=== PATIENT | female | born 1990 | race Caucasian/White ===

== ENCOUNTER 2024-09-11 07:05 | Outpatient (CLI) | payer BC, SELFPAY ==
--- NOTE | 2024-09-11 07:15 | CRLHL7_ITS ---
For Patients: As a result of the Century Cures Act, medical imaging exams and procedure reports are released immediately into your electronic medical record. You may view this report before your referring provider. If you have questions, please contact your health care provider. OB ULTRASOUND LESS THAN 14 WEEKS, 09/11/2024 COMPARISON: None. TECHNIQUE: Real time londono scale imaging of the fetus was performed. Transvaginal imaging performed. FINDINGS: IMAGING: TV. LMP: 07/12/2024. MEGAN by LMP: 04/18/2025. GA: 8 weeks 5 days. CRL: 1.0 cm, 7 weeks 1 day. MEGAN 04/29/2025. FHR: 134 bpm. GEST SAC: 2.4 cm, appears WNL. YOLK SAC: 3.6 mm, appears WNL. RIGHT OV: 3.2 x 1.4 x 2.2 cm, WNL. LEFT OV: 2.8 x 2.1 x 1.9 cm, WNL. CL. IMPRESSION: Single living intrauterine measuring 7 weeks 1 day and sonographic due date 04/29/2025. Jarrell Mendoza M.D. Diagnostic Radiologist [email or web address] Transcribed: 1:01 pm DW/Dictated by: Jarrell Mendoza MD @ 09/11/2024 10:22:00 AM (Electronically Signed)
== END 2024-09-11 07:06 | disposition home or self-care (01) ==
LOC: US 07:08
PROVIDERS: Visit Provider Physician Assistant
DX: Z34.91 Encounter for supervision of normal pregnancy, unspecified, first trimester (principal); Z3A.08 8 weeks gestation of pregnancy
CPT/HCPCS: 76817

== ENCOUNTER 2024-09-11 08:49 | Outpatient (CLI) | payer BC, SELFPAY ==
[2024-09-11 13:37] LABS: Chlamydia DNA Amplified* NOT DETECTED (No Detected); GC DNA Amplified* NOT DETECTED (No Detected)
== END 2024-09-11 08:50 | disposition home or self-care (01) ==
PROVIDERS: Visit Provider Physician Assistant
DX: Z34.81 Encounter for supervision of other normal pregnancy, first trimester (principal); Z67.40 Type O blood, Rh positive
CPT/HCPCS: 83020; 83021; 85660; 86592; 86703; 86704; 86706; 86762; 86787; 86803; 86850; 86900; 86901; 87086; 87340; 87491; 87591

== ENCOUNTER 2024-10-09 08:53 | Outpatient (CLI) | payer BC, SELFPAY | END 2024-10-09 08:54 | disposition home or self-care (01) | PROVIDERS: Visit Provider Obstetrics & Gynecology | DX: Z34.91 Encounter for supervision of normal pregnancy, unspecified, first trimester (principal); Z87.59 Personal history of other complications of pregnancy, childbirth and the puerperium; Z3A.11 11 weeks gestation of pregnancy | CPT/HCPCS: 82565; 82570; 84156; 84450; 84460; 84520 ==

== ENCOUNTER 2024-11-05 15:28 | Outpatient (CLI) | payer BC, SELFPAY | END 2024-11-05 15:29 | disposition home or self-care (01) | PROVIDERS: Visit Provider Obstetrics & Gynecology | DX: Z34.82 Encounter for supervision of other normal pregnancy, second trimester (principal) | CPT/HCPCS: 80076 ==

== ENCOUNTER 2024-11-16 14:54 | Outpatient (CLI) | payer BC, SELFPAY | END 2024-11-16 14:55 | disposition home or self-care (01) | LOC: NFLDREF 11-19 16:46 | PROVIDERS: Visit Provider Obstetrics & Gynecology | DX: Z34.82 Encounter for supervision of other normal pregnancy, second trimester (principal); Z87.59 Personal history of other complications of pregnancy, childbirth and the puerperium | CPT/HCPCS: 82570; 84156 ==

== ENCOUNTER 2024-12-04 08:06 | Outpatient (CLI) | payer BC, SELFPAY ==
--- NOTE | 2024-12-04 08:15 | CRLHL7_ITS ---
For Patients: As a result of the 21st Century Cures Act, medical imaging exams and procedure reports are released immediately into your electronic medical record. You may view this report before your referring provider. If you have questions, please contact your health care provider. OB ULTRASOUND SURVEY MEGAN by US: 04/29/2025. GA: 19 w, 1 d. INDICATION: anatomic scan. TECHNIQUE: Real time londono scale imaging of the fetus was performed. Evaluate anatomy. Transabdominal and transvaginal imaging performed. position: Vertex, oblique, transverse, breech, multiple positions. Head to maternal left. Cervix: Visualized. Technique: Transabdominal and Transvaginal. Length of closed cervix: 4.5 cm. Placenta/cord: Anterior. Technique: Transabdominal and Transvaginal. Placenta tip to internal OS: Previa. Umbilical Cord: 3-vessel cord. Placenta insertion: Central. Amniotic Fluid: 4.5 cm SDP (greater than/equal to: 2- less than 8 cm). SURVEY: Observed Structures. Calvarium/Spine: Cerebellum: 2.0 cm, 20 w 2 d. Cisterna Magna: 2.6 mm. Nuchal Fold: 3.5 mm. Lateral Ventricle: 7.1 mm. CSP: Yes. Midline Falx: Yes. Choroid Plexus: Yes. Spine: See impression. Abdomen: Stomach: Yes. Abd Cord Insertion: Yes. Urinary Bladder: Yes. Kidneys: See impression. Diaphragm: Yes. Face: Nose/lips: Yes. Orbital view: Yes. Profile: Yes. Limbs: Upper Extremities: Yes. Lower Extremities: Yes. Hands: Yes. Feet: Yes. Vascular: 4-Chamber Heart: Yes. LVOT: Yes. RVOT: Yes. 3VV: See impression. 3VTV: See impression. BPD: 4.3 cm. 19 w, 1 d, 50 percent. HC: 16.8 cm. 19 w, 3 d, 58 percent. AC: 16.0 cm. 21 w, 0 d, 94 percent. FL: 3.3 cm. 20 w, 2 d, 82 percent. FL/AC ratio: 20.63 percent. HC/AC ratio: 1.05. heart rate: 130 bpm. age by this US: 20 w, 0 d. MEGAN by this US: 04/23/2025. EFW: 359.31 g. Weight: 0 lbs, 13 oz. Percentile by MEGAN: >97 percent. IMPRESSION: 1. Abnormal three-vessel view and three-vessel trachea view. Incomplete visualization of the remaining heart structures. Cannot exclude a cardiac anomaly. Level 2 maternal medicine consultation recommended. 2. Incomplete visualization of the spine and kidneys. These structures should be followed up on subsequent imaging. 3. Sonographic gestational age 20 weeks 0 days and sonographic due date 04/23/2025. Sonographic age is 6 days ahead of the clinical age. 4. Estimated weight greater than 97th percentile. Abdominal circumference 94th percentile. 5. With transvaginal imaging, the anterior placental edge is located 1.6 cm from the internal cervical os. Previa appears to have developed with transvaginal imaging and following a contraction. Follow-up placental position in relation to the cervical os recommended. Jarrell Mendoza M.D. Diagnostic Radiologist [email or web address] SALMA/[email or web address]/Dictated by: Jarrell Mendoza MD @ 12/04/2024 12:43:00 PM (Electronically Signed)
== END 2024-12-04 08:07 | disposition home or self-care (01) ==
LOC: US 08:07
PROVIDERS: Visit Provider Obstetrics & Gynecology
DX: Z87.59 Personal history of other complications of pregnancy, childbirth and the puerperium (principal); O35.BXX0 Maternal care for other (suspected) fetal abnormality and damage, fetal cardiac anomalies, not applicable or unspecified; O35.FXX0 Maternal care for other (suspected) fetal abnormality and damage, fetal musculoskeletal anomalies of trunk, not applicable or unspecified; Z3A.20 20 weeks gestation of pregnancy
CPT/HCPCS: 76805; 76817

== ENCOUNTER 2025-01-24 11:22 | Outpatient (CLI) | payer BC, SELFPAY ==
--- NOTE | 2025-01-24 11:30 | CRLHL7_ITS ---
For Patients: As a result of the Cures Act, medical imaging exams and procedure reports are released immediately into your electronic medical record. You may view this report before your referring provider. If you have questions, please contact your health care provider. OB ULTRASOUND FOLLOW-UP/LIMITED, 01/24/2025 CLINICAL HISTORY: Complete previa. COMPARISON: 12/04/2024 TECHNIQUE: Real time londono scale imaging of the fetus was performed. Transabdominal imaging performed. FINDINGS: MEGAN by US: 04/29/2025. GA: 26 weeks 3 days. Gestation: Single. Cervix: Visualized. TA. Measurement: 4.7 cm. Positioning: Vertex. Amniotic Fluid: 6.3 cm SDP. Placenta: Technique: TA. Placenta Position: Anterior. Dopplers: Heart Rate: 134 bpm. IMPRESSION: The cervix is closed and measures 4.7 cm. The anterior placenta edge is located 4.2 cm from the internal cervical os. Jarrell Mendoza M.D. Diagnostic Radiologist [email or web address] Transcribed: 2:10 pm DW/Dictated by: Jarrell Mendoza MD @ 01/24/2025 12:28:00 PM (Electronically Signed)
== END 2025-01-24 11:23 | disposition home or self-care (01) ==
LOC: US 11:23
PROVIDERS: Visit Provider Obstetrics & Gynecology
DX: O44.02 Complete placenta previa NOS or without hemorrhage, second trimester (principal); Z3A.26 26 weeks gestation of pregnancy
CPT/HCPCS: 76816

== ENCOUNTER 2025-02-05 08:04 | Outpatient (CLI) | payer BC, SELFPAY | END 2025-02-05 08:05 | disposition home or self-care (01) | LOC: NFLDREF 02-21 02:25 | PROVIDERS: Visit Provider Obstetrics & Gynecology | DX: Z34.93 Encounter for supervision of normal pregnancy, unspecified, third trimester (principal) | CPT/HCPCS: 86592 ==

== ENCOUNTER 2025-02-19 08:06 | Outpatient (CLI) | payer BC, SELFPAY ==
--- NOTE | 2025-02-19 08:15 | CRLHL7_ITS ---
For Patients: As a result of the Cures Act, medical imaging exams and procedure reports are released immediately into your electronic medical record. You may view this report before your referring provider. If you have questions, please contact your health care provider. OB ULTRASOUND FOLLOW-UP CLINICAL HISTORY: GDM. TECHNIQUE: Real time londono scale imaging of the fetus was performed. Transabdominal imaging performed. COMPARISON: 01/24/2025, 12/04/2024, 09/11/2024. FINDINGS: MEGAN by US: 04/29/2025. GA: 30 weeks 1 day. Gestation: Single. Cervix: Not visualized. Positioning: Vertex. Placenta: Technique: TA. Placenta Position: Anterior. Amniotic Fluid: 7.3 cm SDP. Dopplers: Heart Rate: 133 bpm. BIOMETRY BPD: 8.0 cm, 32 weeks 1 day. 90.4% HC: 29.4 cm, 32 weeks 4 days. 80.9% AC: 28.2 cm, 32 weeks 2 days. 93.4% FL: 5.6 cm, 29 weeks 4 days. 22.0% FL/AC Ratio: 20.0% HC/AC Ratio: 1.0. EFW: 1771 grams, 3 lb 14 oz. Age by this US: 31 weeks 5 days. MEGAN by this US: 04/18/2025. Percentile by MEGAN: 82.1% IMPRESSION: 1. Sonographic gestational age 31 weeks 5 days and sonographic due date 04/18/2025. Sonographic age is 11 days ahead of the clinical age. 2. Estimated weight 82nd percentile. Abdominal circumference 93rd percentile. Jarrell Mendoza M.D. Diagnostic Radiologist [email or web address] Transcribed: DW/Dictated by: Jarrell Mendoza MD @ 02/19/2025 9:59:00 AM (Electronically Signed)
== END 2025-02-19 08:07 | disposition home or self-care (01) ==
LOC: US 08:06
PROVIDERS: Visit Provider Obstetrics & Gynecology
DX: O24.419 Gestational diabetes mellitus in pregnancy, unspecified control (principal); O36.63X0 Maternal care for excessive fetal growth, third trimester, not applicable or unspecified; Z3A.30 30 weeks gestation of pregnancy
CPT/HCPCS: 76816

== ENCOUNTER 2025-02-22 09:10 | Outpatient (CLI) | payer BC, SELFPAY ==
--- NOTE | 2025-02-22 09:15 | CRLHL7_ITS ---
For Patients: As a result of the Cures Act, medical imaging exams and procedure reports are released immediately into your electronic medical record. You may view this report before your referring provider. If you have questions, please contact your health care provider. OB ULTRASOUND MEGAN by US: 04/29/2025. GA: 30 w, 4 d. Single. Comparison: Ultrasound 02/09/2025, 01/24/2025. INDICATION: GDMA2. TECHNIQUE: Real time grayscale imaging of the fetus was performed. Transabdominal. CERVIX: Not visualized. POSITIONING: Vertex. AMNIOTIC FLUID: 7.4 cm. SDP (N: greater than 2 x 1 cm) BIOPHYSICAL PROFILE: 2: Gross body movements 2: tone 2: Respiratory activity 2: Amniotic fluid SDP (N: greater than 2 x 1 cm) 8/8: Total score PLACENTA: Technique: Transabdominal. PLACENTA POSITION: Anterior. DOPPLER: heart rate: 132 bpm. IMPRESSION: Normal biophysical profile score 8/8. Jarrell Mendoza M.D. Diagnostic Radiologist [email or web address] SALMA/[email or web address]/Dictated by: Jarrell Mendoza MD @ 02/22/2025 12:25:00 PM (Electronically Signed)
== END 2025-02-22 09:11 | disposition home or self-care (01) ==
LOC: US 09:10
PROVIDERS: Visit Provider Obstetrics & Gynecology
DX: O24.419 Gestational diabetes mellitus in pregnancy, unspecified control (principal); Z3A.30 30 weeks gestation of pregnancy
CPT/HCPCS: 76819

== ENCOUNTER 2025-02-26 13:53 | Outpatient (CLI) | payer BC, SELFPAY ==
--- NOTE | 2025-02-26 14:00 | CRLHL7_ITS ---
For Patients: As a result of the Century Cures Act, medical imaging exams and procedure reports are released immediately into your electronic medical record. You may view this report before your referring provider. If you have questions, please contact your health care provider. INDICATION: 34 year-old female. Gestational diabetes mellitus. Evaluate well-being. TECHNIQUE: Limited transabdominal obstetrical ultrasound for biophysical profile purposes. COMPARISON: February 22, 2025. FINDINGS: There is a single living intrauterine in vertex presentation. The documented heart rate is 126 beats per minute. Anterior placenta. Normal amniotic fluid. Single deepest pocket measurement 3.7 cm previously 7.4 cm. Biophysical profile score 8/8 with 2 points given each for breathing, tone, body movements, and amniotic fluid volume. IMPRESSION : 1. Biophysical profile score 8/8 2. Single living intrauterine in vertex presentation with heart rate of 126 beats per minute. Dictated by Doug Fields MD @ 02/26/2025 3:11:48 PM (Electronically Signed)
== END 2025-02-26 13:54 | disposition home or self-care (01) ==
LOC: US 13:53
PROVIDERS: Visit Provider Obstetrics & Gynecology
DX: O24.419 Gestational diabetes mellitus in pregnancy, unspecified control (principal)
CPT/HCPCS: 76819

== ENCOUNTER 2025-03-05 07:16 | Outpatient (CLI) | payer BC, SELFPAY ==
--- NOTE | 2025-03-05 07:15 | CRLHL7_ITS ---
For Patients: As a result of the Cures Act, medical imaging exams and procedure reports are released immediately into your electronic medical record. You may view this report before your referring provider. If you have questions, please contact your health care provider. OBSTETRICAL ULTRASOUND ??? BIOPHYSICAL PROFILE INDICATION: GDMA2 CLINICAL HISTORY: MEGAN by Ultrasound: 04/29/2025 Gestational Age: 32 weeks 1 day COMPARISON: 02/26/2025, 02/22/2025, 02/19/2025. TECHNIQUE: Real-time londono-scale transabdominal imaging of the fetus was performed. FINDINGS: Fetus: Single Cervix: Not visualized positioning: Vertex Amniotic Fluid: 5.6 cm SDP BIOPHYSICAL PROFILE: Gross body movements: 2 tone: 2 Respiratory activity: 2 Amniotic fluid SDP: 2 Total score: 8 Placenta technique: Transabdominal Placenta position: Anterior heart rate: 131 bpm IMPRESSION: Normal biophysical profile score of 8/8. JARRELL DUMONT M.D. Diagnostic Radiologist [email or web address] Transcribed: 10:[address]/Dictated by: Jarrell Dumont MD @ 03/05/2025 9:16:00 AM (Electronically Signed)
== END 2025-03-05 07:17 | disposition home or self-care (01) ==
LOC: US 07:17
PROVIDERS: Visit Provider Obstetrics & Gynecology
DX: O24.419 Gestational diabetes mellitus in pregnancy, unspecified control (principal); Z3A.32 32 weeks gestation of pregnancy
CPT/HCPCS: 76819

== ENCOUNTER 2025-03-12 13:55 | Outpatient (CLI) | payer BC, SELFPAY ==
--- NOTE | 2025-03-12 14:00 | CRLHL7_ITS ---
For Patients: As a result of the Cures Act, medical imaging exams and procedure reports are released immediately into your electronic medical record. You may view this report before your referring provider. If you have questions, please contact your health care provider. OB ULTRASOUND BIOPHYSICAL PROFILE CLINICAL HISTORY: GDMA2. TECHNIQUE: Real time londono scale imaging of the fetus was performed. Transabdominal imaging performed. COMPARISON: 03/05/2025, 02/26/2025, 02/22/2025. FINDINGS: MEGAN by US: 04/29/2025. GA: 33 weeks 1 day. Gestation: Single. Cervix: Not visualized. Positioning: Vertex. Amniotic Fluid: 6.8 cm SDP. BIOPHYSICAL PROFILE Gross Body Movements: 2 Tone: 2 Respiratory Activity: 2 Amniotic Fluid SDP: 2 Total Score: 8 Placenta: Technique: TA. Placenta Position: Anterior. Dopplers: Heart Rate: 144 bpm. IMPRESSION: Normal biophysical profile score of 8/8. Jarrell Mendoza M.D. Diagnostic Radiologist [email or web address] Transcribed: 4:09 pm DW/Dictated by: Jarrell Mendoza MD @ 03/12/2025 3:26:00 PM (Electronically Signed)
== END 2025-03-12 13:56 | disposition home or self-care (01) ==
LOC: US 13:55
PROVIDERS: Visit Provider Obstetrics & Gynecology
DX: O24.419 Gestational diabetes mellitus in pregnancy, unspecified control (principal); Z3A.33 33 weeks gestation of pregnancy
CPT/HCPCS: 76819

== ENCOUNTER 2025-03-19 09:12 | Outpatient (CLI) | payer BC, SELFPAY ==
--- NOTE | 2025-03-19 09:15 | CRLHL7_ITS ---
For Patients: As a result of the Century Cures Act, medical imaging exams and procedure reports are released immediately into your electronic medical record. You may view this report before your referring provider. If you have questions, please contact your health care provider. OB ULTRASOUND MEGAN by US: 04/29/2025. GA: 34 w, 1 d. Single. Comparison: 03/12/2025, 03/05/2025, 02/26/2025. INDICATION: GDM2. TECHNIQUE: Real time grayscale imaging of the fetus was performed. Transabdominal. CERVIX: Not visualized. POSITIONING: Vertex. AMNIOTIC FLUID: 15.9 cm ELOISA. 8.5 cm. SDP (N: greater than 2 x 1 cm) BIOPHYSICAL PROFILE: 2: Gross body movements 2: tone 2: Respiratory activity 2: Amniotic fluid SDP (N: greater than 2 x 1 cm) 88: Total score PLACENTA: Technique: Transabdominal. PLACENTA POSITION: Anterior. DOPPLER: heart rate: 131 bpm. BIOMETRY: BPD: 9.0 cm. 36 w, 3 d, 95.5%. HC: 32.8 cm. 37 w, 2 d, 88.1%. AC: 31.0 cm. 35 w, 0 d, 76.6%. FL: 6.3 cm. 32 w, 5 d, 10.0%. FL/AC ratio: 20.4%. HC/AC ratio: 1.1. EFW: 2500g. Weight: 5 lbs., 8 oz. age by this US: 35 w, 3 d. MEGAN by this US: . Percentile by MEGAN: 61.7%. IMPRESSION: 1. Normal biophysical profile score 8/8. 2. Amniotic fluid single deepest pocket 8.5 cm. ELOISA 15.9 cm. 3. Sonographic gestational age 35 weeks 3 days and sonographic due date 04/20/2025. Sonographic age is 8 days ahead of the clinical age. 4. Estimated weight 62nd percentile. Abdominal circumference 77th percentile. Jarrell Mendoza M.D. Diagnostic Radiologist [email or web address] SALMA/[email or web address] [email or web address]/Dictated by: Jarrell Mendoza MD @ 03/19/2025 1:13:00 PM (Electronically Signed)
== END 2025-03-19 09:13 | disposition home or self-care (01) ==
LOC: US 09:12
PROVIDERS: Visit Provider Obstetrics & Gynecology
DX: O24.419 Gestational diabetes mellitus in pregnancy, unspecified control (principal); O36.63X0 Maternal care for excessive fetal growth, third trimester, not applicable or unspecified; Z3A.34 34 weeks gestation of pregnancy
CPT/HCPCS: 76816; 76819

== ENCOUNTER 2025-03-26 12:55 | Outpatient (CLI) | payer BC, SELFPAY ==
--- NOTE | 2025-03-26 13:00 | CRLHL7_ITS ---
For Patients: As a result of the Cures Act, medical imaging exams and procedure reports are released immediately into your electronic medical record. You may view this report before your referring provider. If you have questions, please contact your health care provider. OB ULTRASOUND MEGAN by US: 04/29/2025. GA: 35 w, 1 d. Single. Comparison: 03/19/2025, 03/12/2025, 03/05/2025. INDICATION: GDMA 2. TECHNIQUE: Real time grayscale imaging of the fetus was performed. Transabdominal. CERVIX: Not visualized. POSITIONING: Vertex. AMNIOTIC FLUID: 18.8 cm ELOISA. 8.3 cm. SDP (N: greater than 2 x 1 cm) BIOPHYSICAL PROFILE: 2: Gross body movements 2: tone 2: Respiratory activity 2: Amniotic fluid SDP (N: greater than 2 x 1 cm) 8/8: Total score PLACENTA: Technique: Transabdominal. PLACENTA POSITION: Anterior. DOPPLER: heart rate: 134 bpm. IMPRESSION: 1. Normal biophysical profile score 8/8. 2. Amniotic fluid single deepest pocket 8.3 cm. ELOISA 18.8 cm. Jarrell Mendoza M.D. Diagnostic Radiologist [email or web address] SALMA/[email or web address]/Dictated by: Jarrell Mendoza MD @ 03/26/2025 4:05:00 PM (Electronically Signed)
== END 2025-03-26 12:56 | disposition home or self-care (01) ==
LOC: US 12:55
PROVIDERS: Visit Provider Obstetrics & Gynecology
DX: O24.419 Gestational diabetes mellitus in pregnancy, unspecified control (principal); Z3A.35 35 weeks gestation of pregnancy
CPT/HCPCS: 76819

== ENCOUNTER 2025-04-02 09:10 | Outpatient (CLI) | payer BC, SELFPAY ==
--- NOTE | 2025-04-02 09:15 | CRLHL7_ITS ---
For Patients: As a result of the Cures Act, medical imaging exams and procedure reports are released immediately into your electronic medical record. You may view this report before your referring provider. If you have questions, please contact your health care provider. OBSTETRICAL ULTRASOUND ??? BIOPHYSICAL PROFILE INDICATION: Gestational diabetes mellitus. Biophysical profile. CLINICAL HISTORY: MEGAN by Ultrasound: 04/29/2025 Gestational Age: 36 weeks 1 day COMPARISON: 03/26/2025, 03/19/2025, 03/12/2025, 03/05/2025, 02/26/2025. TECHNIQUE: Real-time londono-scale transabdominal imaging of the fetus was performed. FINDINGS: Fetus: Single Cervix: Not visualized positioning: Vertex Amniotic Fluid: ELOISA: 20.2 cm SDP: 8.5 cm BIOPHYSICAL PROFILE: Gross body movements: 2 tone: 2 Respiratory activity: 2 Amniotic fluid SDP: 2 Total score: 8 Placenta technique: Transabdominal Placenta position: Anterior heart rate: 141 bpm IMPRESSION: 1. Normal biophysical profile score of 8/8. 2. Amniotic fluid single deepest pocket is 8.5 cm. ELOISA is 20.2 cm. JARRELL DUMONT M.D. Diagnostic Radiologist [email or web address] Transcribed: 10:[address]/Dictated by: Jarrell Dumont MD @ 04/02/2025 9:57:00 AM (Electronically Signed)
== END 2025-04-02 09:11 | disposition home or self-care (01) ==
LOC: US 09:10
PROVIDERS: Visit Provider Obstetrics & Gynecology
DX: O24.419 Gestational diabetes mellitus in pregnancy, unspecified control (principal); Z3A.36 36 weeks gestation of pregnancy
CPT/HCPCS: 76819

== ENCOUNTER 2025-04-09 09:11 | Outpatient (CLI) | payer BC, SELFPAY ==
--- NOTE | 2025-04-09 09:15 | CRLHL7_ITS ---
For Patients: As a result of the Cures Act, medical imaging exams and procedure reports are released immediately into your electronic medical record. You may view this report before your referring provider. If you have questions, please contact your health care provider. OBSTETRICAL ULTRASOUND ??? BIOPHYSICAL PROFILE INDICATION: Gestational diabetes mellitus. Biophysical profile. CLINICAL HISTORY: MEGAN by Ultrasound: 04/29/2025 Gestational Age: 37 weeks 1 day COMPARISON: 04/02/2025, 03/26/2025, 03/19/2025. TECHNIQUE: Real-time londono-scale transabdominal imaging of the fetus was performed. FINDINGS: Fetus: Single Cervix: Not visualized positioning: Vertex Amniotic Fluid: 6.9 cm SDP BIOPHYSICAL PROFILE: Gross body movements: 2 tone: 2 Respiratory activity: 2 Amniotic fluid SDP: 2 Total score: 8 Placenta technique: Transabdominal Placenta position: Anterior heart rate: 131 bpm IMPRESSION: Normal biophysical profile score of 8/8. JARRELL DUMONT M.D. Diagnostic Radiologist [email or web address] Transcribed: 10:[address]/Dictated by: Jarrell Dumont MD @ 04/09/2025 10:02:00 AM (Electronically Signed)
== END 2025-04-09 09:12 | disposition home or self-care (01) ==
LOC: US 09:12
PROVIDERS: Visit Provider Obstetrics & Gynecology
DX: O24.410 Gestational diabetes mellitus in pregnancy, diet controlled (principal); Z3A.37 37 weeks gestation of pregnancy; Z34.93 Encounter for supervision of normal pregnancy, unspecified, third trimester; I49.9 Cardiac arrhythmia, unspecified
CPT/HCPCS: 76819

== ENCOUNTER 2025-04-09 10:55 | Outpatient (CLI) | payer BC, SELFPAY | END 2025-04-09 10:56 | disposition home or self-care (01) | LOC: NFLDREF 04-11 13:45 | PROVIDERS: Visit Provider Obstetrics & Gynecology | DX: Z34.93 Encounter for supervision of normal pregnancy, unspecified, third trimester (principal); I49.9 Cardiac arrhythmia, unspecified | CPT/HCPCS: 84443; 87081; 87653 ==

== ENCOUNTER 2025-04-16 09:15 | Outpatient (CLI) | payer BC, SELFPAY ==
--- NOTE | 2025-04-16 09:15 | CRLHL7_ITS ---
For Patients: As a result of the Century Cures Act, medical imaging exams and procedure reports are released immediately into your electronic medical record. You may view this report before your referring provider. If you have questions, please contact your health care provider. INDICATION: Gestational diabetes mellitus in COMPARISON: 04/09/2025 TECHNIQUE: Grayscale and color ultrasound of the uterus and fetus from a transabdominal approach. FINDINGS: Provided gestational age: 38 weeks 1 day Single intrauterine gestation in a vertex presentation. heart rate is 137 bpm. No pleural effusion, pericardial effusion, ascites, or skin edema. The kidneys and bladder and stomach are normal. Biparietal diameter: 9.4 cm Head circumference: 33.5 cm Abdominal circumference: 33.9 cm Femur length: 7.2 cm HC/AC: 0.99, within normal limits for gestational age. The composite ultrasound estimated gestational age is 37 weeks 6 days. The estimated weight is 3272 grams, or 7 pounds 3 ounces. This corresponds to the 51st percentile for gestational age. Amniotic fluid volume is normal. The placenta is fundal. No previa. No periplacental hemorrhage. WELLBEING tone: 2/2 movement: 2/2 breathin/2 Amniotic fluid volume: 2/2 The single deepest vertical pocket measures: 7.7 cm. IMPRESSION: 1. Single intrauterine gestation in vertex presentation. Growth is concordant with dates. 2. Biophysical profile score 6/8. No points for breathing. Dictated by Rosa Givens MD @ 04/16/2025 10:22:45 AM (Electronically Signed)
== END 2025-04-16 09:16 | disposition home or self-care (01) ==
LOC: US 09:15
PROVIDERS: Visit Provider Obstetrics & Gynecology
DX: O24.419 Gestational diabetes mellitus in pregnancy, unspecified control (principal); Z3A.38 38 weeks gestation of pregnancy
CPT/HCPCS: 76816; 76819

== ENCOUNTER 2025-04-21 12:26 | Inpatient (IN) | payer BC, SELFPAY ==
[2025-04-21] VITALS (40 sets, daily range): BP systolic 107–155; BP diastolic 57–95; PULSE 64–221; RESP 16–18; TEMP 36.4–36.7; O2SAT 85–100; BMI 27.6
[2025-04-21] MEDS: LACTATED RINGERS 1000 ML 1,000 ML 999 ML IV (12:57)
--- NOTE | 2025-04-21 13:01 | P.LDBA_ITS ---
Subjective History of Present Illness Time Seen by Provider: 13:01 Date Seen: 04/21/25 Narrative: Patient is being admitted to Labor and Delivery for Contractions increasing. NO HSV symptoms.Blood sugars stable. She is a 34 year old at weeks gestation. Her full history and physical was dictated by Dr. Bryant. Recent us AGA growth.Please see this for details. Specific Issues/Plans Partner: Dimas H&P: 04/09 Dr. Bryant # GDMA2 Gestational diabetes - Dx of 1 hour glucola of 194mg/dL Nutrition referral Almost all fastings elevated as of 02/19 - referred to [facility] for insulin management 02/22: diabetic ed, 12U NPH at HS Serial growth US + twice weekly testing (ANT sheet completed 02/19) - Delivery at 39 weeks, sooner with suboptimal control - Anticipate IOL on 04/22 (39.0 weeks) # RESOLVED anterior placenta previa (low lying on our internal FAS) - 01/24 US: Placental edge 4.2cm from internal os. Anterior placenta. MVP 6.3cm. Vertex. 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 They did not see any possible structural defects of the heart, normal spine/kidneys. EFW 313 g at 73rd percentile, AC 77%. Anterior placenta, complete previa. MVP 4.4 cm. - 01/24 US: Placental edge 4.2cm from internal os. Anterior placenta. MVP 6.3cm. Vertex. - 02/19/25: cephalic, SDP 7.3, EFW 82.1%, AC 93.4%, BPD 90.4%, HC 80.9%, FL 22%. - 03/19/25: cephalic, ELOISA 15.9, SDP 8.5, EFW 61.7%, AC 76.6%, BPD 95.5%, HC 88.1%, FL 10% - 04/15: Cephalic, SDP 7.7, EFW 50.7%, AC 58%, all growth parameters within normal ranges Vaccinations: Hep B: Non-immune: Given 10/09/24 COVID: Declines Flu: completed at work Tdap: 02/19/25 RSV: Had in previous - discussed med hgb; 03/12/25 12.6 32 week mental health: 03/05/25 Last pap: [Only high-risk abnormal pap results in problem list] [place]: Low risk, male OB - Problem Based A/P Additional Plan (1) GDM, class A2: Status: Acute (2) Anxiety: Problem details: zoloft 50 mg daily Status: Acute (3) Normal labor: Status: Acute Plan Admit, continue Sertraline at evening 50mg. Arom after epidural. BS per protocol OB Exam Physical Exam Vital signs: Temp Pulse Resp BP Pulse Ox 97.6 F 81 16 131/79 97 04/21/25 09:47 04/21/25 12:59 04/21/25 09:47 04/21/25 12:59 04/21/25 09:57 Detailed Labor and Delivery Exam Patient Gravid: yes Dilation (cm): 4 Effacement (%): 80 Contraction Frequency: 2-3 Contraction intensity: Moderate Fetus (Single) Station: -2 Amniotic Membrane Status: intact Heart Rate Baseline: 130 Monitor Accelerations: Present Monitor Decelerations: None Chcf Variability: Moderate (6-25)
[2025-04-21 13:27] LABS: Hematocrit* 44.3 % (33.0-51.0); Hemoglobin* 14.5 gm/dL (12.0-16.0); Immature Granulocytes Pct Auto 0.2 %; Mean Corpuscular HGB Conc 33 gm/dL (32-36); Mean Corpuscular Hemoglobin 29 pg (26-34); Mean Corpuscular Volume 90 fL (80-100); RDW Coefficient of Variation % 13.4 % (11.5-15.5); Red Blood Count* 4.94 m/uL (4.00-5.20); White Blood Count* 13.28 K/uL (4.50-11.00)
[2025-04-21] MEDS: ONDANSETRON 2 MG/ML inj 4 MG IV (13:27)
[2025-04-21 13:29] LABS: Immature Granulocytes Abs Auto 0.00 K/uL (0.00-0.30); Lymphocytes Absolute Auto 2.80 K/uL (0.90-2.90); Slide Review Reflex No
[2025-04-21] MEDS: ROPIVACAINE 0.2% 100 ml 100 ML 12 MG EPIDURAL (13:53)
[2025-04-21] MEDS: ROPIVACAINE 0.2 % PF 10 ML INJ 20 MG EPIDURAL (13:53)
[2025-04-21] MEDS: LIDOCAINE 2% (PF) 5 ML VIAL EPIDURAL (13:53)
--- NOTE | 2025-04-21 13:56 | PM.ANBPRC ---
[facility] Medical History (Updated 04/21/25 @ 13:09 by Wander Tellez M.D.) Seasonal allergies ?J30.2 - Other seasonal allergic rhinitis (ICD-10) Placenta previa ?O44.00 - Complete placenta previa NOS or without hemorrhage, unspecified trimester (ICD-10) Vulvovaginal candidiasis ?B37.31 - Acute candidiasis of vulva and vagina (ICD-10) History of vaginal delivery Surgical History History of hysteroscopy ?Z98.890 - Other specified postprocedural states (ICD-10) Family History Father High blood pressure Liver disease Alcohol dependence Mother Thyroid disease Social History Narrative: SOCIAL HISTORY: 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 Marital status: . Zoroastrian/cultural needs: no. Chemical or radiation exposure: no. Pre- tobacco use: no. Pre- alcohol use: 1/week. Current tobacco use: no. Current alcohol use: no. Recreational drug use: no. Dietary restrictions: no. Blood transfusion acceptable in an emergency: no. PSYCHOSOCIAL HISTORY: History of depression or currently depressed: Denies. Current or past physical, emotional, or sexual mistreatment: Denies. Problems that will make it hard to make it to appointments: Denies. What is your current living situation?: I presently have a place to live Problems where you live: no known problems In the past 12 months, utilities in danger of being shut off: no In past 12 months, lack of transportation kept you from medical appts, meetings, work, or getting things needed for daily living: no In the past 12 mos, have been you worried that your food would run out before you had money to buy more?: never true In the past 12 mos, the food you bought just didn't last and you didn't have money to buy more?: never true Smoking Status: Never smoker How often does anyone, including family, friends and others, physically hurt you: never How often does anyone, including family, friends and others, insult or talk down to you: never How often does anyone, including family, friends and others, threaten you with harm: never How often does anyone, including family, friends and others, scream or curse at you: never Meds Home Medications and Allergies Home Medications ?Medication ?Instructions ?Recorded ?Confirmed ?Type SML-xbqs-PI-omega 3 fatty no.1 27 1 cap PO DAILY 09/11/24 04/21/25 History mg-1 mg-300 mg capsule sertraline 50 mg tablet 50 mg PO QDAY 09/11/24 04/21/25 History aspirin 81 mg tablet 81 mg PO QDAY 01/01/25 04/21/25 History omeprazole 40 mg capsule,delayed 40 mg PO QDAY #90 caps 01/01/25 04/21/25 Rx release polyethylene glycol 3350 17 4 g PO ONCE 01/24/25 04/21/25 History gram/dose oral powder (Miralax) blood sugar diagnostic (Blood #100 ea 02/05/25 04/21/25 Rx Glucose Test strips) blood-glucose meter #1 ea 02/05/25 04/21/25 Rx lancets (Accu-Chek Softclix #100 ea 02/05/25 04/21/25 Rx Lancets) alcohol swabs (Alcohol Pads) 2 pad topical DAILY #100 ea 02/22/25 04/21/25 Rx insulin NPH isoph U-100 human 100 12 unit (0.12 mL) subcut .hs #30 mL 02/22/25 04/21/25 Rx unit/mL subcutaneous suspension (Humulin N NPH U-100 Insulin (isophane susp)) insulin syringe-needle U-100 1 mL #100 ea 02/22/25 04/21/25 Rx 30 gauge x 5/16 (Sure Comfort Insulin Syringe) lancets 30 gauge (OneTouch Delica #100 ea 02/22/25 04/21/25 History Plus Lancet) valacyclovir 500 mg tablet 500 mg PO BID #90 tabs 03/19/25 04/21/25 Rx (Valtrex) Allergies Allergy/AdvReac Type Severity Reaction Status Date / Time cefaclor (From [facility]) Allergy Intermediate Rash Verified 04/16/25 10:14 Results Labs Labs: Laboratory Results - last 24 hr 04/21/25 12:55 WBC 13.28 H RBC 4.94 Hgb 14.5 Hct 44.3 MCV 90 MCH 29 MCHC 33 RDW Coeff of Jenny 13.4 Plt Count 117 L Neut % (Auto) 71.4 Lymph % (Auto) 21.4 Gem % (Auto) 6.6 Eos % (Auto) 0.2 Baso % (Auto) 0.2 Neut # (Auto) 9.50 H Lymph # (Auto) 2.80 Gem # (Auto) 0.90 Eos # (Auto) 0.00 Baso # (Auto) 0.00 Abs Immat Gran (auto) 0.00 Imm/Tot Granulo (auto) 0.2 Vital Signs Vital Signs: Last Vital Signs Temp 97.9 F 04/21/25 13:25 Pulse 90 04/21/25 13:55 Resp 16 04/21/25 13:25 BP 146/81 H 04/21/25 13:55 Pulse Ox 100 04/21/25 13:54 Weight: 82.6 kg Height: 172.72 cm Anesthesia Procedures Epidural Insertion Patient Location: OB Start Time: 13:10 Stop Time: 13:57 Start Date: 04/21/25 Stop Date: 04/21/25 Reason for Block: procedure for pain Patient Position: sitting Performed By: Alejandro Aguayo Preanesthetic Checklist: IV checked, risks and benefits discussed, surgical consent, monitors and equipment checked, pre-op evaluation, timeout performed and anesthesia consent Prep: chlorhexidine gluconate Monitoring: blood pressure monitoring, continuous pulse oximetry and heart rate Approach: midline Vertebral Space: lumbar (1-5) Epidural Technique: MICHELLE air Needle Type: Tuohy needle Injection Technique: continuous catheter Needle gauge: 17 Needle Length (cm): 10 cm Needle Insertion Depth (cm): 7 Catheter Gauge: 19 Catheter Type: multi-orifice Catheter at skin depth (cm): 13 Test Dose Result: negative and lidocaine 1.5% with epinephrine 1 to 200,000
[2025-04-21] MEDS: OXYTOCIN 30 unit/500 ML in NS 30 UNIT/500 ML BAG 300 UNIT IVPB (14:27)
--- NOTE | 2025-04-21 14:55 | W.PM.OBVAGDE ---
OB Procedure Vag Delivery Mother Details Mother Details: The patient is a 34 year-old, 2, Para 1, admitted on 04/21/25 at 38 weeks + 6 Days gestation. : 4 Para: 2 Weeks Gestation: 38 Admission Date: 04/21/25 Additional Details Amniotic Membrane Status: AROM Amniotic Membrane Rupture Date: 04/21/25 Amniotic Membrane Rupture Time: 14:10 Amniotic Membrane Fluid Description: Clear Analgesia/Anesthesia Type: Epidural Waterbirth: No Pitcoin: No Intrapartal Events: Distress and Precipitous Labor <3 Hrs Delivery augmentation: rupture of membranes Labor Onset: 13:38 Complete: 14:10 Pushin:12 Heart: heart tones during second stage were Decreased with some decels with pushing into 80s. Delivery Details Delivery Date: 04/21/25 Delivery Time: 14:34 Route of delivery: vacuum extraction (Placed at +3 OA position. Kiwi in green zone, 1 pull for 10 seconds. NO pop-offs. discussed with patient and spouse prior. Indication: decreased heart rate.) Infant Gender: Male Infant Viability: Alive; Heart Rate Present Position at Delivery: OA Delivery Details: Delivered via [spontaneous] vaginal delivery. was placed on maternal abdomen.? Cord was clamped and cut after a 30-60 second delay. Nose and mouth were bulb suctioned.? weight pending. 1 Minute Interval Total Score: 7 5 Minute Interval Total Score: 8 Additional Details Shoulder Dystocia: No Placental Delivery Description: Spontaneous Delivery repair: Chromic Procedure Done: Global Blood Loss: 200 Laceration: Periurethral - 1st Degree Blood Loss Measurement Type: QBL Bakri Used: No Sponge/Need Count Correct: Yes Cord Vessel Description: 3 Vessels Indication for instrumentation: nonreassuring FHR tracing Event Summary Status: Mother and infant were stable after delivery. Disposition: floor
[2025-04-21] MEDS: IBUPROFEN 600 MG TABLET PO (18:40)
[2025-04-21] MEDS: LANOLIN CREAM 1 APPLIC TOPICAL (18:41)
[2025-04-21] MEDS: ACETAMINOPHEN 500 MG TABLET 1000 MG PO (20:53)
[2025-04-22] MEDS: SERTRALINE 50 MG TABLET PO (00:04)
[2025-04-22 00:10] VITALS: BP 132/76; PULSE 72; RESP 18; TEMP 36.4; O2SAT 96
[2025-04-22] MEDS: IBUPROFEN 600 MG TABLET PO ×3 (00:13→13:39)
[2025-04-22 03:07] VITALS: BP 143/91; PULSE 82; RESP 18; TEMP 36.4; O2SAT 97
[2025-04-22 03:23] VITALS: BP 142/88
[2025-04-22] MEDS: ACETAMINOPHEN 500 MG TABLET 1000 MG PO (03:26)
--- NOTE | 2025-04-22 08:16 | P.OBPN_ITS ---
OB - PN:Subj Subjective Date Seen: 04/22/25 Narrative: Elle is a 34 year old who was admitted for active labor and proceeded to have a vacuum assisted vaginal with a 1st degree laceration that was repaired. The patient feels well.? The pain is well controlled with current medications.? She has no new complaints.? Urinary output is adequate and she is voiding without difficulty.? Has a good appetite, is tolerating a general diet, is passing flatus, and has not had a bowel movement.? Has scant amount of rubra lochia.? She is ambulating well. She is and reports it is going well.?Baby is starting to cluster feed. No BROOKS, vision changes or RUQ pain. OB - PN: Obj Exam Physical Exam: Vital signs: Temp Pulse Resp BP Pulse Ox O2 Del Method 97.6 F 82 18 142/88 H 97 Room Air 04/22/25 03:07 04/22/25 03:07 04/22/25 03:07 04/22/25 03:23 04/22/25 03:07 04/22/25 03:07 Narrative: GENERAL APPEARANCE:? normal affect, alert, no distress MOOD:? appropriate CHEST:? clear to auscultation HEART:? regular rate and rhythm ABDOMEN:? soft, non-tender the uterine fundus is At Umbilicus, Midline and is appropriate for the stage of recovery. PERINEUM:? deferred EXTREMITIES:? normal and no edema OB - PN: Obj Data Labs Labs: Laboratory Results - last 24 hr 04/21/25 04/21/25 12:55 13:20 WBC 13.28 H RBC 4.94 Hgb 14.5 Hct 44.3 MCV 90 MCH 29 MCHC 33 RDW Coeff of Jenny 13.4 Plt Count 117 L Neut % (Auto) 71.4 Lymph % (Auto) 21.4 Hyde % (Auto) 6.6 Eos % (Auto) 0.2 Baso % (Auto) 0.2 Neut # (Auto) 9.50 H Lymph # (Auto) 2.80 Hyde # (Auto) 0.90 Eos # (Auto) 0.00 Baso # (Auto) 0.00 Abs Immat Gran (auto) 0.00 Imm/Tot Granulo (auto) 0.2 Blood Type O Positive Antibody Screen NEGATIVE OB - PN: A/P Delivery Assessment and Plan (1) GDM, class A2: Status: Acute (2) Anxiety: Problem details: zoloft 50 mg daily Status: Acute (3) care and examination of lactating mother: Status: Acute (4) Gestational hypertension: Status: Acute Plan Comments: PP day #1 Routine care GHTN -to check labs if another elevated BP May see as desired Anticipate discharge either this velma, if peds ok to discharge baby and normotensive
[2025-04-22 08:21] VITALS: BP 136/89; PULSE 82; RESP 16; TEMP 36.4; O2SAT 97
[2025-04-22] MEDS: DOCUSATE SODIUM 100 MG CAPSULE PO (08:21)
[2025-04-22 09:36] LABS: Hematocrit* 41.8 % (33.0-51.0); Hemoglobin* 14.1 gm/dL (12.0-16.0); Mean Corpuscular HGB Conc 34 gm/dL (32-36); Mean Corpuscular Hemoglobin 29 pg (26-34); Mean Corpuscular Volume 87 fL (80-100); Red Blood Count* 4.82 m/uL (4.00-5.20); White Blood Count* 14.48 K/uL (4.50-11.00)
[2025-04-22 09:38] LABS: Slide Review Reflex No
[2025-04-22 09:53] LABS: Blood Urea Nitrogen* 13 mg/dL (5-24); Creatinine* 0.9 mg/dL (0.5-1.5); Est. Creatinine Clearance* 88.85; Estimated Glomerular Filt Rate 86 ml/min
[2025-04-22 09:54] LABS: Alanine Aminotransferase* 18 U/L (4-35); Aspartate Amino Transferase* 32 U/L (12-35)
[2025-04-22 13:00] VITALS: BP 126/81; PULSE 79; RESP 16; TEMP 36.7; O2SAT 97
--- NOTE | 2025-04-22 13:20 | PM.ANPOST ---
Post Anesthesia Note Post Anesthesia Note Patient seen: Inpatient Respiratory Status: adequate Cardiovascular Status: adequate Mental Status: baseline Pain: adequate Temp: baseline Anesthetic awareness: N/A Complications: none Follow care: none
--- NOTE | 2025-04-22 16:33 | P.DS_ITS ---
DS: Providers Provider Date Seen: 04/22/25 Date of admission: 04/21/25 12:26 Primary care physician: Not a Local Provider Admitting Clinician: Wander Tellez M.D. Attending Physician on discharge: Michelle TAYLOR Date of Discharge: 04/22/25 DS: Diagnosis Discharge Diagnosis (1) care and examination of lactating mother: Status: Acute (2) Gestational hypertension: Status: Acute (3) GDM, class A2: Status: Acute (4) Anxiety: Status: Acute Problem details: zoloft 50 mg daily Exam Narrative: Exam Narrative: GENERAL APPEARANCE:? normal affect, alert, no distress MOOD:? appropriate CHEST:? clear to auscultation HEART:? regular rate and rhythm ABDOMEN:? soft, non-tender the uterine fundus is At Umbilicus, Midline and is appropriate for the stage of recovery. PERINEUM:? deferred EXTREMITIES:? normal and no edema Const: Vital Signs, click to edit/add: Vital Signs - 24 hr 04/21/25 20:06 04/22/25 00:10 04/22/25 03:07 Temperature 98.0 F 97.5 F L 97.6 F Pulse Rate [Pulse Oximeter] 80 72 82 Respiratory Rate 18 18 18 Blood Pressure [Le ft Arm] 130/78 132/76 143/91 H Pulse Oximetry 96 96 97 Oxygen Delivery Me thod Room Air Room Air Room Air 04/22/25 03:23 04/22/25 08:21 Temperature 97.5 F L Pulse Rate [Pulse Oximeter] 82 Respiratory Rate 16 Blood Pressure [Le ft Arm] 142/88 H 136/89 Pulse Oximetry 97 Oxygen Delivery Me thod Room Air OB - DS: Summary Hospital Course Hospital Course: Elle is a 34?y.o. G 2 P 2001 who was admitted to [facility] & D for active labor.??She had a NVD that was uncomplicated. The patient feels well.??The pain is well controlled with current medications.??She has no new complaints.??She is breast?feeding?and reports things are going well. the patient has done well.??Vitals have been stable but did have mild elevations of BP this morning which prompted labs and a GHTN diagnosis.??She does not have any severe features. She has?remained?afebrile.??Has a good appetite,?is?tolerating a general diet.??She is voiding without difficulty.??She is passing gas and has not had a bowel movement.??She is ambulating and denies any dizziness.??Has?small?amount of rubra lochia. She is unsure her plan for prevention.? ?? Problems:GHTN diagnosis, normal lab findings. ?? plan:? Discharge?home with baby.? Follow up in 2 weeks and?6 weeks.? , may see if needed? Hgb 14.1. ? GHTN diagnosed by elevated BP greater than 4 hours apart?in the PP period Labs WNL or stable with trending. Platelets did drop to 98 today. Will recheck this at her BP follow up on Tuesday. Discharge?home with BP cuff if does not already have one? Follow up in 3-5 days? Call for signs/symptoms of preeclampsia? Peripartum Data Infant delivery method: Vaginal Laceration description: Periurethral - 1st Degree Episiotomy description: None complications: other (GHTN diagnosis) [place] Infant Gender: Male Discharge Plan: Home Status at Discharge Functional status at discharge: independent ambulation Overall status at discharge: patient is progressing back to baseline Time Spent with Patient Time attestation: Total time spent providing and/or coordinating discharge services: Time spent: Less than 30 minutes Discharge Plan Discharge Disposition: Home, Self-Care Date of Admission: 04/21/25 12:26 Attending Provider on Discharge: Luzmaria Valle Primary Care Provider: Provider,Not a Local Condition: Stable Anticipated Discharge Date/Time: 04/22/25 16:24 Discharge Medications: Continued sertraline 50 mg tablet 50 mg PO QDAY EMB-ytha-FJ-omega 3 fatty no.1 27-1-300 mg capsule 1 cap PO DAILY polyethylene glycol 3350 [Miralax] 17 gram/dose powder 4 g PO ONCE Discontinued valacyclovir [Valtrex] 500 mg tablet 500 mg PO BID Qty: 90 0RF aspirin 81 mg tablet 81 mg PO QDAY omeprazole 40 mg capsule,delayed release(DR/EC) 40 mg PO QDAY Qty: 90 1RF (DME) lancets [OneTouch Delica Plus Lancet] 30 gauge misc See Rx Instructions .ROUTE QID Qty: 100 Rx Instructions: As directed (DME) insulin syringe-needle U-100 [Sure Comfort Insulin Syringe] 1 mL 30 gauge x 5/16 syringe See Rx Instructions .ROUTE .MEDSUPPLY Qty: 100 3RF Rx Instructions: As directed Humulin N NPH U-100 Insulin 100 unit/mL suspension 12 unit subcut .hs Qty: 30 1RF alcohol swabs [Alcohol Pads] Pads, Medicated 2 pad topical DAILY Qty: 100 1RF (DME) blood-glucose meter Misc See Rx Instructions .Route Qty: 1 0RF Rx Instructions: As directed to test blood glucose four times daily (DME) lancets [Accu-Chek Softclix Lancets] Misc See Rx Instructions .Route Qty: 100 2RF Rx Instructions: As directed to test blood glucose four times daily (DME) Blood Glucose Test Strip See Rx Instructions .Route Qty: 100 2RF Rx Instructions: As directed to test blood glucose four times daily Discharge Orders: Discharge Order (Routine); Ordered 04/22/25 Ordered By: Luzmaria Valle Patient Education: OB Over the Counter Medication Information, OB Vaginal/Breast Feeding Additional Instructions: Discharge instructions were reviewed with the patient including signs and symptoms of infection and home going medications Nothing vaginally for 6 weeks: no tampons or intercourse Do not drive while taking narcotic pain medication(s) Off Work or School for 6 weeks Symptoms to report to doctor: * Bleeding that saturates more than one pad per hour * Passing clots larger than the size of a golf ball * Pain not relieved by prescribed medication * Fever above 100.4 degrees Fahrenheit * A foul vaginal odor * Difficulty in emotions, mood, and functions * Thoughts of hurting yourself and/or * Painful, reddened area in your breast * Any drainage, redness, or tenderness in your IV/epidural site * Severe headache that doesn't improve after taking medications * Changes in vision, including temporary loss of vision, blurred vision, and/or light sensitivity * Upper abdominal pain (usually under ribs on the right side) * Decrease in urination or painful, frequent urinating * Chest pain * Shortness of breath * Tenderness or pain with redness and/swelling in the calf(s) of your leg [facility] BP check?04/26/2025. Please call to schedule this. Call with BP greater than or equal to 140/90 2-week visit: discuss infant feeding concerns, review control options and screen for anxiety/depression. 6-week visit for an annual exam. consultation services are available to all mothers and babies for the first year after delivery.? To make an appointment, please call [phone]. Activity Level: Activity as Tolerated and No strenuous activity Discharge Diet: Regular Follow Up Appointments: [facility] [Provider Group] Forms: [employer] Info Instructions
== END 2025-04-22 17:35 | disposition home or self-care (01) | DRG 560 ==
LOC: OB OUT 12:27 → OB 12:27
PROVIDERS: Midwife; Admitting Provider Obstetrics & Gynecology; Visit Provider Obstetrics & Gynecology
DX: O24.414 Gestational diabetes mellitus in pregnancy, insulin controlled (principal); O62.3 Precipitate labor; O76 Abnormality in fetal heart rate and rhythm complicating labor and delivery; O70.0 First degree perineal laceration during delivery; O99.344 Other mental disorders complicating childbirth; F41.9 Anxiety disorder, unspecified; G89.18 Other acute postprocedural pain; O13.5 Gestational [pregnancy-induced] hypertension without significant proteinuria, complicating the puerperium; Z3A.38 38 weeks gestation of pregnancy; Z37.0 Single live birth
CPT/HCPCS: 01967; 36415; 64488; 82565; 84450; 84460; 84520; 85025; 85027; 86780; 86850; 86900; 86901; A9270; J2405; J2795; J7120

== ENCOUNTER 2025-04-24 10:16 | Outpatient (CLI) | payer BC, SELFPAY | END 2025-04-24 10:17 | disposition home or self-care (01) | PROVIDERS: Visit Provider Obstetrics & Gynecology | DX: O13.3 Gestational [pregnancy-induced] hypertension without significant proteinuria, third trimester (principal) | CPT/HCPCS: 82565; 84450; 84460 ==

== ENCOUNTER 2025-04-24 11:27 | Observation (INO) | payer BC, SELFPAY ==
[2025-04-24] VITALS (11 sets, daily range): BP systolic 119–136; BP diastolic 72–93; PULSE 66–86; RESP 16
[2025-04-24] MEDS: LANOLIN CREAM 1 APPLIC TOPICAL (11:47)
--- NOTE | 2025-04-24 14:25 | PM.OBLDTN ---
OB - Triage/Final Diagnosis Visit Information Date Seen: 04/24/25 Narrative: The patient is a 34 year old 2 para 2001 who was admitted to Labor and delivery for active labor. She had uncomplicated . She was diagnosed with gestational hypertension and discharged home with blood pressure surveillance. Today she called due to persistently elevated blood pressures on her home blood pressure cuff (150s/100s). She presented to clinic for a blood pressure check and those pressures were within normal limits. I decided to redraw preeclampsia labs and sent her to the center for blood pressure monitoring due to her platelets being 98 at time of discharge on 04/22/2025. Fortunately, her platelets have normalized to 172. However her AST has jumped from 32 to 60. We discussed that it is tenuous whether she will continue to have uptrending transaminitis to the point where we would need to utilize magnesium sulfate for seizure prophylaxis. Her blood pressures have mostly been normal in triage (120s/70-80s). She had 3 mild ranging BP of 136/91, 134/92, 135/93. Denies any persistent headache, vision changes, SOB, right upper quadrant/epigastric pain, or rapidly expanding edema. Will start on Nifedipine 30mg XL QD. Recommend follow up Pre-E labs tomorrow to see if she needs hospitalization and magnesium sulfate administration. Patient is amenable to the plan and has no further questions. Strict return precautions reinforced. Evaluation Vital signs: Vital Signs - 24 hr 04/24/25 11:30 04/24/25 11:45 04/24/25 12:00 Pulse Rate 78 81 Respiratory Rate 16 Blood Pressure 132/78 126/72 127/76 04/24/25 12:15 04/24/25 12:30 04/24/25 12:45 Pulse Rate 66 79 73 Respiratory Rate Blood Pressure 119/79 121/86 127/83 04/24/25 13:00 04/24/25 13:15 04/24/25 13:30 Pulse Rate 82 71 70 Respiratory Rate Blood Pressure 126/86 129/89 136/91 H 04/24/25 13:45 04/24/25 14:00 Pulse Rate 77 86 Respiratory Rate Blood Pressure 134/92 H 135/93 H Comments: Physical exam: General: Tearful but consolable Psych: Alert and oriented x4, full affect HEENT: Normocephalic, atraumatic Lungs: Unlabored breathing Lower extremities: No edema or erythema Pelvic exam: Deferred
== END 2025-04-24 14:30 | disposition home or self-care (01) ==
PROVIDERS: Admitting Provider Obstetrics & Gynecology; Visit Provider Obstetrics & Gynecology
DX: O13.5 Gestational [pregnancy-induced] hypertension without significant proteinuria, complicating the puerperium (principal)
CPT/HCPCS: A9270; G0378; G0379